=== PATIENT | female | born 1960 | race Caucasian/White ===

== ENCOUNTER 2017-08-20 21:10 | Emergency (ER) | payer OTHER ==
[2017-08-20 21:30] VITALS: BP 116/77
--- NOTE | 2017-08-20 22:07 | RAD ---
INDICATION: Left thumb pain COMPARISON: None. TECHNIQUE: 2 views of the left hand were obtained. FINDINGS: The adequately corticated bones are in normal alignment. No significant focal osseous abnormality or fracture is seen there are degenerative changes at the distal interphalangeal joints most severely affecting the index finger where there are marginal osteophytes. Degenerative changes at the left thumb metacarpal trapezium joint include sclerotic bony remodeling and marginal osteophyte formation. IMPRESSION: Degenerative changes as described above. If the patient's symptoms persist, follow-up imaging is recommended.
--- NOTE | 2017-08-20 22:13 | UC ---
Mahnaz Talamantes Elizabeth, scribed for Francisco Carroll MD on 08/20/17 at 2137 . Hand/Wrist HPI - HPI Summary HPI Summary: This patient is a 56 year old F presenting to [facility] with a chief complaint of left thumb injury since this afternoon. The patient notes that she injured her thumb today when mowing the lawn. The patient states that she thinks her thumb may be out of place. The patient rates the pain 3/10 in severity. Symptoms aggravated by nothing. Symptoms alleviated by nothing. Per triage note, patient reports that her thumb - History Of Current Complaint Chief Complaint: UCUpperExtremity Stated Complaint: THUMB INJURY Time Seen by Provider: 08/20/17 21:16 Hx Obtained From: Patient Onset/Duration: Sudden Onset, Lasting Hours, Still Present Severity Initially: Mild Severity Currently: Mild Pain Intensity: 3 Pain Scale Used: 0-10 Numeric Aggravating Factor(s): Other - nothing Alleviating Factor(s): Nothing - Allergies/Home Medications Allergies/Adverse Reactions: Allergies Allergy/AdvReac Type Severity Reaction Status Date / Time No Known Allergies Allergy Verified 08/20/17 21:30 Home Medications: Home Medications Dextroamphetamine/Amphetamine [Adderall 5 mg Tablet] 5 mg PO WEEKLY 08/20/17 [ History Confirmed 08/20/17] PMH/Surg Hx/FS Hx/Imm Hx Previously Healthy: Yes - Surgical History Surgical History: Yes Surgery Procedure, Year, and Place: ablation 2002 - Family History Known Family History: Positive: None, Other - patient denies any relevant FHx - Social History Alcohol Use: Occasionally Substance Use Type: None Smoking Status (MU): Never Smoked Tobacco Review of Systems Constitutional: Negative - NEGATIVE FEVER ENT: Negative - NEGATIVE EPISTAXIS Respiratory: Negative - NEGATIVE COUGH Musculoskeletal: Decreased ROM - in left thumb, Other: - left thumb pain All Other Systems Reviewed And Are Negative: Yes Physical Exam - Summary Physical Exam Summary: VITAL SIGNS: Reviewed. GENERAL: Patient is a well-developed and nourished FEMALE who is lying comfortable in the stretcher. Patient is not in any acute respiratory distress. HEAD AND FACE: Normocephalic EYES: PERRLA, EOMI x 2. EARS: Hearing grossly intact. MOUTH: Oropharynx within normal limits. NECK: Supple, trachea is midline, no adenopathy, no JVD, no carotid bruit. CHEST: Symmetric, no tenderness at palpation LUNGS: Clear to auscultation bilaterally. No wheezing or crackles. CVS: Regular rate and rhythm, S1 and S2 present, no murmurs or gallops appreciated. ABDOMEN: Soft, non-tender. Bowel sounds are normal. No abdominal abnormal pulsations. EXTREMITIES: No cyanosis or clubbing. Decreased ROM of left thumb, swelling in proximal phalanx of left thumb NEURO: Alert and oriented x 3. No acute neurological deficits. Speech is normal and follows commands. SKIN: Dry and warm Triage Information Reviewed: Yes Vital Signs: Initial Vital Signs Temp 97.6 F 08/20/17 21:25 Pulse 74 08/20/17 21:25 Resp 16 08/20/17 21:25 BP 116/77 08/20/17 21:25 Pulse Ox 100 08/20/17 21:25 Vital Signs Reviewed: Yes Diagnostics - Radiology Hand XR Xray Interpretation: No Acute Changes - FINDINGS: The adequately corticated bones are in normal alignment. No significant focal osseous abnormality or fracture is seen there are degenerative changes at the distal interphalangeal joints most severely affecting the index finger where there are marginal osteophytes. Degenerative changes at the left thumb metacarpal trapezium joint include sclerotic bony remodeling and marginal osteophyte formation. IMPRESSION: Degenerative changes as described above. If the patient's symptoms persist, follow-up imaging is recommended. Dr. Carroll has reviewed this report. Radiology Interpretation Completed By: Radiologist Hand/Wrist Course/Dx - Course Course Of Treatment: X-ray shows no fracture dislocation. Patient was advised to take ibuprofen or Tylenol for the pain. Follow-up with PCP - Differential Dx/Diagnosis Differential Diagnosis/HQI/PQRI: Bursitis, Fracture, Sprain, Strain Provider Diagnoses: joint pain. Osteoarthritis Discharge - Sign-Out/Discharge Documenting (check all that apply): Discharge/Admit/Transfer - Discharge Plan Condition: Stable Disposition: HOME Patient Education Materials: Arthralgia (ED), Swollen Joint (ED) Referrals: Ninfa Dominguez MD [Primary Care Provider] - Additional Instructions: Take ibuprofen attending for the pain Follow with primary care physician. - Billing Disposition and Condition Condition: STABLE Disposition: HOME The documentation as recorded by the Mahnaz tapia Elizabeth accurately reflects the service I personally performed and the decisions made by me, Francisco Carroll MD.
== END 2017-08-20 22:12 | disposition home or self-care (01) ==
LOC: UCEAST 21:10
DX: M25.542 Pain in joints of left hand (principal); M19.042 Primary osteoarthritis, left hand
CPT/HCPCS: 99201; G0463